=== PATIENT | male | born 1960 | race Caucasian/White ===

== ENCOUNTER → 2023-10-20 12:01 | Outpatient (CLI) | payer OTHER, SELFPAY ==
--- NOTE | 2023-10-20 | DI.NM.S_ITS ---
PROCEDURE: NM APPLE PERF SPECT SINGLE STUDY Exercise myocardial perfusion SPECT with gated imaging and ejection fraction RADIOPHARMACEUTICAL: 26.7 mCi Tc-99m sestamibi IV at peak exercise. INDICATIONS: Dyspnea on exertion TECHNIQUE: Radiopharmaceutical was injected at peak stress test. SPECT images were obtained, with perfusion images in short axis, horizontal long axis, and vertical long axis views. Gated images were reviewed using [employer] software. COMPARISON: None. CARDIAC STRESS: A standard David treadmill exercise tolerance test was performed by the patient under the supervision of an attending staff. The patient exercised for 12 minutes and 30 seconds; functional aerobic impairment (KIRK) is -41%. Hemodynamic data: There is a borderline hypertensive response to exercise (resting BP 122/76mmHg, max BP 208/86mmHg). Appropriate heart rate response to exercise. Patient achieved 94% of maximum predicted heart rate. Symptoms: Patient denied anginal chest pain during exercise. EKG: No diagnostic changes of ischemia; frequent PVCs at rest that decreased significantly by peak exercise and came back during recovery. FINDINGS: Raw data: There is good labeling of myocardium by radiotracer. No significant motion artifacts. Gofl-re-zjxbv ratio is 0.23 (normal is less than 0.38 for sestamibi tracer, and less than 0.50 for thallium tracer). Left ventricular function: Gated images demonstrate normal left ventricle wall thickening. No segmental wall motion abnormalities. Left ventricle end diastolic volume is 107 mL. Left ventricle stress ejection fraction is 73%; normal values are above 45%. Myocardial perfusion: There is normal distribution of activity in the left and right ventricular myocardium, without focal perfusion defects. IMPRESSION: Low risk, normal treadmill nuclear stress test from inducible ischemia standpoint. Borderline hypertensive response to exercise (resting BP 122/76mmHg, max BP 208/86mmHg). 1) No perfusion evidence of ischemia or infarction. SSS 0. No resting images done. 2) Normal left ventricular size, wall motion, and systolic function (EF post stress 73%). 3) No ST changes during exercise or recovery. 4) Frequent PVCs at rest that decreased significantly by peak exercise and came back during recovery. 5) Excellent exercise tolerance (12.8METs, KIRK -41%). Target heart rate reached. 6) Borderline hypertensive response to exercise (resting BP 122/76mmHg, max BP 208/86mmHg). 7) No prior nuclear stress test available for comparison. Dictated by: Thea Fairchild MD on 10/20/2023 at 15:23 Approved by: Thea Fairchild MD on 10/20/2023 at 15:28
== END ==
PROVIDERS: Family Provider Family Medicine; PCP Internal Medicine; Referring Provider Internal Medicine; Visit Provider Internal Medicine
DX: R06.09 Other forms of dyspnea (principal); E11.9 Type 2 diabetes mellitus without complications; I10 Essential (primary) hypertension
CPT/HCPCS: 78451; 93017; A9502

== ENCOUNTER → 2024-12-05 12:36 | Outpatient (CLI) | payer OTHER, SELFPAY ==
--- NOTE | 2024-12-05 12:37 | DI.ECHO.S_ITS ---
[facility] : : [address] : : [place] : : [id number] : : Phone: [phone] Echocardiogram Report + + :Name: ARLETH GRIGGS Study Date: 12/05/2024 Height: 73 in : :Hospital ReadingLocation: Weight: 146 lb: : Gender: Male BSA: 1.9 m2 : :: 1960 Age: 64 yrs : :Reason For Study: PVC : :Ordering Physician: EMILY THOMPSON Performed By: Marely Molina : :Referring: EMILY THOMPSON : + + Interpretation Summary 1. The left ventricular contractility is normal. Estimated ejection fraction of greater than 55% with no segmental wall motion abnormalities. No LVH. No diastolic dysfunction. 2. The right ventricular contractility is normal. 3. All cardiac chambers are of normal size. 4. Trace to mild mitral regurgitation. 5. No obvious intracardiac shunts. 6. No obvious intracardiac masses nor thrombi. 7. No hemodynamically significant pericardial effusion. 8. Normal right-sided filling pressures. Conclusion: Normal biventricular function with no significant valvular abnormalities. Procedure: A two-dimensional transthoracic echocardiogram with color flow and Doppler was performed. The study quality was technically adequate. There is no prior echocardiogram noted for this patient. The patient had frequent PVCs during the exam. Patient was in a bigeminal rhythm throughout majority of exam. The heart rate ranged between 53-67 bpm during the study. Left Ventricle: The left ventricle is normal in size and wall thickness. The ejection fraction is estimated to be 55-60%. Right Ventricle: The right ventricle is normal in size and function. Atria: The left atrial size is normal. Right atrial size is normal. There is no Doppler evidence for an interatrial shunt. Mitral Valve: The mitral valve leaflets appear to open well. There is mild mitral regurgitation. Aortic Valve: The aortic valve is trileaflet. The aortic valve opens well. There is no aortic valve stenosis. No aortic regurgitation is present. Tricuspid Valve: The tricuspid valve leaflets are thin and pliable. There is trace tricuspid regurgitation. The right ventricular systolic pressure is estimated to be at least 30 mmHg based on an estimated right atrial pressure of 3 mm Hg. Pulmonic Valve: The pulmonic valve is not well seen, but is grossly normal. There is a trace or physiologic amount of pulmonic regurgitation. Great Vessels: The aortic root is normal size. The ascending aorta could not be visualized. The IVC is dilated (diameter is greater than 2.1 cm) yet it collapses greater than 50% with a sniff. This suggests a right atrial pressure of 8 mm Hg. Pericardium/ Pleura There is no pericardial effusion. There is no pleural effusion. MMode/2D Measurements & Calculations LVIDd: 4.6 cm LVOT diam: 2.2 cm LVIDs: 3.2 cm Ao root diam: 3.6 cm FS: 30.4 % Ao Arch Diam (Prox Trans): 2.9 cm IVSd: 0.69 cm LVPWd: 0.63 cm LV hearn. diameter/BSA (cm/m^2): 2.4 LV sys. diameter/BSA (cm/m^2): 1.7 LA A2 area: 20.8 cm2 RA long axis: 4.1 cm LA A4 area: 16.1 cm2 RA area: 16.4 cm2 LA length (vol): 4.9 cm RA vol: 55.8 ml LA vol: 58.1 ml RA : 29.6 ml/m2 LA vol index: 30.8 ml/m2 IVC diam: 2.5 cm RVD1 (basal): 3.9 cm RVD2 (mid): 3.1 cm TAPSE: 2.6 cm Doppler Measurements & Calculations Ao V2 max: 110.1 cm/sec LVOT Max Melvin: 70.5 cm/sec Ao V2 mean: 81.1 cm/sec LV V1 max P.0 mmHg Ao max P.9 mmHg LV V1 VTI: 17.6 cm Ao mean P.9 mmHg TRUE(I,D): 2.6 cm2 Ao V2 VTI: 25.6 cm TRUE(V,D): 2.4 cm2 sev ratio: 0.69 TRUE indexed to BSA (cm^2/m^2): 1.4 MV E max melvin: 37.6 cm/sec TR max melvin: 262.9 cm/sec MV A max melvin: 46.3 cm/sec TR max P.6 mmHg MV E/A: 0.81 PA V2 max: 63.6 cm/sec Med Peak E' Melvin: 7.4 cm/sec PA V2 mean: 45.8 cm/sec E/E' med: 5.1 PA mean P.91 mmHg Lat Peak E' Melvin: 5.8 cm/sec PA pr(Accel): 12.2 mmHg E/E' lat: 6.4 E/e' average: 5.7 MV dec time: 0.28 sec SV(LVOT): 66.4 ml Reading Physician:LAURYN
== END ==
PROVIDERS: Referring Provider Internal Medicine; Visit Provider Internal Medicine
DX: I34.0 Nonrheumatic mitral (valve) insufficiency (principal); I49.3 Ventricular premature depolarization
CPT/HCPCS: 93306